=== PATIENT | female | born 1985 | race Caucasian/White ===

== ENCOUNTER 2021-09-22 14:44 | Outpatient (CLI) | payer OTHER, SELFPAY ==
[2021-09-22 18:32] LABS: Hepatitis B Surface Antigen* Negative (Negative)
[2021-09-22 18:42] LABS: HIV 1/2/P24 Combo Screen* Negative (Negative)
[2021-09-22 18:49] LABS: Hepatitis C Virus Antibody* Negative (Negative)
[2021-09-23 00:45] LABS: Chlamydia DNA Amplified* NOT DETECTED (No Detected); GC DNA Amplified* NOT DETECTED (No Detected)
[2021-09-25 05:40] LABS: Rubella Antibody IgG 52.5 IU/mL
[2021-09-25 12:47] LABS: Rapid Plasma Reagin (RPR) Non Reactive (Non Reactive)
== END 2021-09-22 14:45 | disposition home or self-care (01) ==
PROVIDERS: Visit Provider Registered Nurse
DX: Z34.91 Encounter for supervision of normal pregnancy, unspecified, first trimester (principal); Z3A.09 9 weeks gestation of pregnancy
CPT/HCPCS: 76817; 81420; 86592; 86703; 86762; 86803; 86850; 86900; 86901; 87086; 87340; 87491; 87591

== ENCOUNTER 2021-09-27 12:08 | Outpatient (CLI) | payer OTHER, SELFPAY | END 2021-09-27 12:09 | disposition home or self-care (01) | LOC: NFLDREF 12:09 | PROVIDERS: Visit Provider Advanced Practice Midwife | DX: O20.9 Hemorrhage in early pregnancy, unspecified (principal) | CPT/HCPCS: 84702 ==

== ENCOUNTER 2021-10-03 11:05 | Outpatient (CLI) | payer OTHER, SELFPAY ==
--- NOTE | 2021-10-03 11:00 | CRLHL7_ITS ---
For Patients: As a result of the Century Cures Act, medical imaging exams and procedure reports are released immediately into your electronic medical record. You may view this report before your referring provider. If you have questions, please contact your health care provider. INDICATION: BLEEDING IN EARLY COMPARISON: 10/03/2021 TECHNIQUE: Real-time silva-scale imaging of the pelvis was performed. FINDINGS: Sonographic imaging demonstrates a single living intrauterine gestation. The embryo demonstrates a regular cardiac rate measuring 176 beats per minute. The embryo`s crown-rump length measurement of 4.8 cm corresponds to a gestational age of 11 weeks 4 days with a sonographic due date of 04/20/2022. There is a normal-appearing yolk sac. There are no gross abnormalities noted within the embryo at this early state of development. The gestational sac has a normal appearance. There a 7.3 x 3.4 x 6.0 perigestational hemorrhage along the left inferior gestational sac. The amount of fluid within the sac appears appropriate for gestational age. The cervix is closed. The myometrium appears normal. The ovaries are of normal size. Small corpus luteal cyst left ovary. There are no suspicious fluid collections noted in the cul-de-sac. IMPRESSION: Large subchorionic hemorrhage has developed along the left inferior gestational sac measuring 7.3 x 3.4 x 6.0 cm. Single living intrauterine with sonographic gestational age 11 weeks 4 days and sonographic due date 04/20/2022. Dictated by Danny Rowe MD @ 10/03/2021 11:52:25 AM (Electronically Signed)
== END 2021-10-03 11:06 | disposition home or self-care (01) ==
LOC: US 11:06
PROVIDERS: Visit Provider Advanced Practice Midwife
DX: O20.9 Hemorrhage in early pregnancy, unspecified (principal); Z3A.11 11 weeks gestation of pregnancy
CPT/HCPCS: 76801

== ENCOUNTER 2021-10-20 09:11 | Outpatient (CLI) | payer OTHER, SELFPAY ==
--- NOTE | 2021-10-20 09:15 | CRLHL7_ITS ---
For Patients: As a result of the Century Cures Act, medical imaging exams and procedure reports are released immediately into your electronic medical record. You may view this report before your referring provider. If you have questions, please contact your health care provider. INDICATION: FOLLOW UP LARGE JENNIFER COMPARISON: 10.03.21 TECHNIQUE: Real-time silva-scale imaging of the pelvis was performed. FINDINGS: Sonographic imaging demonstrates a single living intrauterine gestation. The embryo demonstrates a regular cardiac rate measuring 159 beats per minute. The embryo`s crown-rump length measurement of 7.5 cm corresponds to a gestational age of 13 weeks 4 days with a sonographic due date of 04/23/2022. Subchorionic hemorrhage can noted in the midline measuring 6.8 x 1.8 x 5.9 cm which is slightly decreased compared to the prior study when it measured 7.3 x 3.4 x 6.0 cm. Increased echogenicity within the subchorionic hemorrhage consistent with normal evolution of blood products. IMPRESSION: Slightly decreased size and normal evolution of blood products regarding the subchorionic hemorrhage. Single living IUP with sonographic gestational age 13 weeks 4 days and sonographic due date 04/23/22. Dictated by Danny Rowe MD @ 10/20/2021 10:09:32 AM (Electronically Signed)
== END 2021-10-20 09:12 | disposition home or self-care (01) ==
LOC: US 09:15
PROVIDERS: Visit Provider Advanced Practice Midwife
DX: O41.8X10 Other specified disorders of amniotic fluid and membranes, first trimester, not applicable or unspecified (principal); O46.8X1 Other antepartum hemorrhage, first trimester; Z3A.13 13 weeks gestation of pregnancy
CPT/HCPCS: 76816

== ENCOUNTER 2021-11-18 16:36 | Outpatient (CLI) | payer OTHER, SELFPAY | END 2021-11-18 16:37 | disposition home or self-care (01) | LOC: NFLDREF 12-02 09:19 | PROVIDERS: Visit Provider Registered Nurse | DX: O09.522 Supervision of elderly multigravida, second trimester (principal); Z3A.17 17 weeks gestation of pregnancy | CPT/HCPCS: 81511 ==

== ENCOUNTER 2021-12-14 13:30 | Outpatient (CLI) | payer BC, SELFPAY | END 2021-12-14 13:31 | disposition home or self-care (01) | LOC: US 13:31 | PROVIDERS: Visit Provider Pediatrics Neonatal-Perinatal Medicine | DX: O98.512 Other viral diseases complicating pregnancy, second trimester (principal); U07.1 COVID-19; O09.522 Supervision of elderly multigravida, second trimester; Z3A.20 20 weeks gestation of pregnancy | CPT/HCPCS: 76811 ==